=== PATIENT | male | born 1980 ===

== ENCOUNTER 2021-05-14 09:46 | Emergency (ER) | payer OTHER ==
[~2021-05-14] VITALS: Ht 177.8 cm; Wt 68.0 kg
== END 2021-05-14 11:03 | disposition home or self-care (01) ==
LOC: ER 09:46
DX: S63.501A Unspecified sprain of right wrist, initial encounter (principal); W01.0XXA Fall on same level from slipping, tripping and stumbling without subsequent striking against object, initial encounter
CPT/HCPCS: 29125; 73110; 99283-25

== ENCOUNTER 2021-06-28 18:38 | Emergency (ER) | payer OTHER ==
[~2021-06-28] VITALS: Ht 177.8 cm; Wt 60.3 kg
[2021-06-28] MEDS ORDERED: PRED20 PO (19:58)
[2021-06-28] MEDS ORDERED: Robaxin750 MG PO (19:58)
[2021-06-28] MEDS ORDERED: TRAM50 PO (19:58)
== END 2021-06-28 20:10 | disposition home or self-care (01) ==
LOC: ER 18:38
DX: M54.50 Low back pain, unspecified (principal); G89.29 Other chronic pain; R51.9 Headache, unspecified; R20.2 Paresthesia of skin; Z91.013 Allergy to seafood
CPT/HCPCS: 99283; A9270; J7512

== ENCOUNTER 2021-09-22 08:46 | Day surgery (SDC) | payer OTHER ==
[~2021-09-22] VITALS: Ht 177.8 cm; Wt 62.7 kg
[~2021-09-22 08:46] MED LIST: NYSTATIN15 GM; PRED20 PO; Robaxin750 MG PO; TRAM50 PO
== END 2021-09-22 11:20 | disposition home or self-care (01) ==
LOC: ORSCSDS 08:46
PROVIDERS: Surgery
PROC: 0DJD8ZZ Inspection of Lower Intestinal Tract, Via Natural or Artificial Opening Endoscopic (ICD-10-PCS; principal; 2021-09-22 10:15)
DX: K62.5 Hemorrhage of anus and rectum (principal); L29.0 Pruritus ani; F17.210 Nicotine dependence, cigarettes, uncomplicated; K64.8 Other hemorrhoids
CPT/HCPCS: J2704; J7120

== ENCOUNTER 2024-03-02 15:24 | Emergency (ER) | payer OTHER ==
[~2024-03-02] VITALS: Ht 177.8 cm; Wt 65.8 kg
[2024-03-02 15:42] VITALS: BP 143/95
== END 2024-03-02 16:26 | disposition home or self-care (01) ==
LOC: ER 15:24
DX: S63.502A Unspecified sprain of left wrist, initial encounter (principal); W18.30XA Fall on same level, unspecified, initial encounter; Z88.8 Allergy status to other drugs, medicaments and biological substances; Z91.013 Allergy to seafood; Z79.899 Other long term (current) drug therapy
CPT/HCPCS: 73110; 99283-25

== ENCOUNTER → 2024-07-23 | Outpatient (CLI) | payer OTHER ==
[2024-07-23 19:35] LABS: BASOPHILS ABSOLUTE AUTO 0.06 K/mm3 (0.00-0.23); BASOPHILS PERCENT AUTO 1 % (0-2); EOSINOPHILS ABSOLUTE AUTO 0.05 K/mm3 (0.00-0.68); EOSINOPHILS PERCENT AUTO 1 % (0-6); Hematocrit 40.6 % (37.0-53.0); Hemoglobin 14.1 g/dL (13.5-17.5); IMMATURE GRAN ABSOLUTE AUTO 0.02 K/mm3 (0.00-0.10); IMMATURE GRAN PERCENT AUTO 0 % (0-1); LYMPHOCYTES ABSOLUTE AUTO 1.32 K/mm3 (0.84-5.20); LYMPHOCYTES PERCENT AUTO 22 % (21-46); MONOCYTES ABSOLUTE AUTO 0.61 K/mm3 (0.16-1.47); MONOCYTES PERCENT AUTO 10 % (4-13); Mean Corpuscular HGB 35.3 pg (26.0-34.0); Mean Corpuscular HGB Conc 34.7 g/dL (31.5-36.5); Mean Corpuscular Volume 102 fL (80-100); Mean Platelet Volume 10.1 fL (9.1-12.4); NEUTROPHILS PERCENT AUTO 66 % (41-73); Platelet Count 199 K/mm3 (150-400); RDW Coefficient Variation 12.4 % (11.7-14.2); White Blood Cell Count 6.06 K/mm3 (4.00-11.30)
[2024-07-23 20:17] LABS: Thyroid Stimulating Hormone 0.583 uIU/mL (0.360-4.800)
[2024-07-23 20:18] LABS: Very Low Density Lipoprot Chol 10 mg/dL (6-32)
[2024-07-23 20:28] LABS: Alanine Aminotransfer (ALT/SGP 47 U/L (12-78); Albumin/Globulin Ratio 1.2 (0.8-1.8); Alk Phos 80 U/L (50-136); Anion Gap 12 mmol/L (3-11); Aspartate Aminotrans (AST/SGOT 53 U/L (12-37); Bilirubin, Total 1.4 mg/dL (0.1-1.0); Blood Urea Nitrogen 6 mg/dL (8-24); CHOL/HDL RATIO 1.5; CO2, Blood 28 mmol/L (21-32); Chloride, Blood 103 mmol/L (98-108); Cholesterol 237 mg/dL (50-200); Creatinine, Blood 0.75 mg/dL (0.60-1.20); Globulin, Blood 3.4 g/dL (2.2-4.0); Glomerular Filtration Rate 113 (60-); Glucose, Blood 94 mg/dL (70-99); HDL Cholesterol 154 mg/dL (>39); LDL/HDL RATIO 0.5; Low Density Lipoprotein Chol 73 mg/dL (0-110); Potassium, Blood 4.2 mmol/L (3.5-5.5); Sodium, Blood 139 mmol/L (136-145); Total Protein, Blood 7.4 g/dL (6.4-8.2); Triglycerides 52 mg/dL (30-160)
== END ==
LOC: LAB SHORT 18:24 → LAB 18:24
PROVIDERS: Family Medicine
DX: E05.90 Thyrotoxicosis, unspecified without thyrotoxic crisis or storm (principal); G57.93 Unspecified mononeuropathy of bilateral lower limbs; Z79.899 Other long term (current) drug therapy
CPT/HCPCS: 80053; 80061; 82607; 82746; 84443; 85025